=== PATIENT | female | born 1940 | race Caucasian/White ===

== ENCOUNTER 2023-11-08 14:11 | Emergency (ER) | payer MEDICARE, SELFPAY ==
--- NOTE | ~2023-11-08 | XR_ITS ---
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 HX: AFIB. 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 Comparison: None. RESULT: Lines, tubes, and devices: Left axillary surgical clip. Left chest pacer with intact leads. Lungs and pleura: Senescent change, granulomatous calcification, otherwise clear. Cardiomediastinal silhouette: Stable. Other: No acute osseous or upper abdominal finding. IMPRESSION: No acute cardiopulmonary process. Reviewed, dictated and finalized at location K. [employer] TE[employer]ER
[2023-11-08 14:22] VITALS: BP 141/70; PULSE 75; RESP 20; TEMP 36.6; O2SAT 94
--- NOTE | 2023-11-08 14:37 | ED.GENADULT ---
HPI - General Adult General Chief complaint: Upper Respiratory Infection Stated complaint: Shortness of Breath/Cough/Dizziness Source: patient, RN notes reviewed and old records reviewed Mode of arrival: ambulatory Limitations: no limitations History of Present Illness HPI narrative: 83-year-old female presents to [facility] for complaint of cough, congestion, myalgias this started around November 01. Patient called her primary care physician on 11/04 and was prescribed a Z-Noe, prednisone, did on, and albuterol. Patient states is worsening and now having wheezing. MD complaint: Cough Onset (ago): week(s) (1) Related Data Home Medications Medication Instructions Recorded Confirmed albuterol sulfate 90 mcg/actuation 2 puff inhalation Q4-6H PRN DAILY 11/08/23 11/08/23 aerosol inhaler apixaban 5 mg tablet (Eliquis) 5 mg PO BID 11/08/23 11/08/23 atorvastatin 10 mg tablet 5 mg PO QPM 11/08/23 11/08/23 azithromycin 250 mg tablet 250 mg PO DAILY 11/08/23 11/08/23 benzonatate 200 mg capsule 200 mg PO TID 11/08/23 11/08/23 cholecalciferol (vitamin D3) 125 125 mcg PO DAILY 11/08/23 11/08/23 mcg (5,000 unit) tablet (Vitamin D3) famotidine 20 mg tablet (Pepcid AC) 20 mg PO HS 11/08/23 11/08/23 gabapentin 100 mg capsule 200 mg PO BID 11/08/23 11/08/23 levothyroxine 88 mcg tablet 88 mcg PO DAILY 11/08/23 11/08/23 magnesium 250 mg tablet 250 mg PO DAILY 11/08/23 11/08/23 methylprednisolone 4 mg tablets in 4 mg PO DIRECTED 11/08/23 11/08/23 a dose pack metoprolol tartrate 25 mg tablet 25 mg PO DAILY 11/08/23 11/08/23 [id number] 8 mg-folic 400 1 tablet PO DAILY 11/08/23 11/08/23 mcg-K 50 mcg-lutein 300 mcg tablet (Centrum Silver Women) oxymetazoline 0.05 % nasal spray 2 spray intranasal Q12H PRN 11/08/23 11/08/23 Congestion sertraline 25 mg tablet 25 mg PO DAILY 11/08/23 11/08/23 trazodone 100 mg tablet 100 mg PO QHS 11/08/23 11/08/23 Allergies Allergy/AdvReac Type Severity Reaction Status Date / Time Penicillins Allergy Intermediate Rash Verified 11/08/23 14:49 NSAIDS (Non-Steroidal AdvReac Unknown Unknown Verified 11/08/23 14:50 Anti-Inflamma Review of Systems Constitutional: Constitutional: Reports no additional constitutional complaints, Reports body ache(s), Denies chills, Reports fatigue, Denies fever(s) and Denies headache(s) Eyes: Eyes: Reports no additional eye complaints and Denies blurry vision ENT: Reports system reviewed and no additional complaints, except as documented, Denies vertigo, Denies dizziness, Denies ear discharge, Denies otalgia, Denies facial pain, Denies headache(s), Reports nasal congestion, Denies nasal discharge, Denies sinus pain, Denies sinus pressure and Denies sore throat Cardiovascular: Cardiovascular: Reports no additional cardiovascular complaints, Denies chest pain, Denies chest pain at rest, Denies rapid heart rate and Denies dyspnea Respiratory: Respiratory: Reports no additional respiratory complaints, Reports chest congestion, Reports cough, Denies pain on inspiration, Denies pain with cough, Denies dyspnea and Reports wheezing Gastrointestinal: Gastrointestinal: Denies abdominal pain, Denies diarrhea, Denies nausea and Denies vomiting Integumentary/Breasts: Skin/Breast: Denies rash Neurologic: Reports system reviewed and no additional complaints, except as documented, Denies vertigo, Denies dizziness and Denies headache(s) Endocrine: Endocrine: Denies fatigue PMFSH Comments At the time of my signature, I reviewed and agree with the nursing past medical, surgical, social, and family history. There is no relevant family history pertinent to the patient complaint. Exam Const: General: cooperative, healthy appearing, no acute distress and well nourished Nutritional Appearance: well nourished Orientation/consciousness: patient oriented x3 Limitations: no limitations HENMT: Head: normal to inspection and normocephalic Ears: external ears normal, TM'
== END 2023-11-08 15:10 | disposition home or self-care (01) ==
PROVIDERS: Emergency Provider Registered Nurse
DX: J06.9 Acute upper respiratory infection, unspecified (principal); I48.91 Unspecified atrial fibrillation; E78.00 Pure hypercholesterolemia, unspecified; I10 Essential (primary) hypertension; Z95.0 Presence of cardiac pacemaker; K21.9 Gastro-esophageal reflux disease without esophagitis; E03.9 Hypothyroidism, unspecified; F41.9 Anxiety disorder, unspecified; G62.9 Polyneuropathy, unspecified; Z85.72 Personal history of non-Hodgkin lymphomas
CPT/HCPCS: 71046; 99213; G0463